=== PATIENT | male | born 1960 | race Caucasian/White ===

== ENCOUNTER 2022-07-28 11:14 | Emergency (ER) | payer OTHER ==
[2022-07-28 11:35] VITALS: BP 153/80; PULSE 80; RESP 18; TEMP 98.7; BMI 32.6
[2022-07-28] MEDS ORDERED: NAPROXEN 375 MG TABLET ONE (13:26)
[2022-07-28] MEDS ORDERED: NAPROXEN 375 MG TABLET PO ONE (13:26)
== END 2022-07-28 13:41 | disposition home or self-care (01) ==
LOC: FER 11:14
DX: M79.672 Pain in left foot (principal)
CPT/HCPCS: 73610-TC-LT-FY; 73630-TC-LT; 99283-25